=== PATIENT | female | born 1945 | race Caucasian/White ===

== ENCOUNTER 2017-05-05 05:51 | Day surgery (SDC) | payer MEDICARE, OTHER ==
[2017-05-04 12:13] LABS: BASOPHILS # (AUTO) 0.1 X10'3 (0-0.2); BASOPHILS % (AUTO) 0.7 % (0-1); EOSINOPHILS # (AUTO) 0.4 X10'3 (0-0.9); EOSINOPHILS % (AUTO) 4.7 % (0-6); HEMOGLOBIN 13.7 g/dl (12.0-16.0); LYMPHOCYTES # (AUTO) 2.1 X10'3 (1.1-4.8); LYMPHOCYTES % (AUTO) 27.4 % (21-51); MEAN CORPUSCULAR HEMOGLOBIN 31.2 PG (27.0-31.0); MEAN CORPUSCULAR HGB CONC 35.2 % (33.0-36.5); MEAN CORPUSCULAR VOLUME 88.7 FL (78-98); MEAN PLATELET VOLUME 7.4 FL (7.4-10.4); MONOCYTES # (AUTO) 0.7 X10'3 (0-0.9); MONOCYTES % (AUTO) 9.4 % (2-12); NEUTROPHILS # (AUTO) 4.4 X10'3 (1.8-7.7); NEUTROPHILS % (AUTO) 57.8 % (42-75); PLATELET COUNT 268 X10'3 (140-440); RED BLOOD COUNT 4.39 X10'6 (4.20-5.60); RED CELL DISTRIBUTION WIDTH 13.4 % (11.5-14.5); WHITE BLOOD COUNT 7.7 X10'3 (4.5-11.0)
[2017-05-04 12:23] LABS: ALBUMIN 3.6 G/DL (3.4-5.0); ANION GAP 9 (8-16); BLOOD UREA NITROGEN 24 MG/DL (7-18); BUN/CREATININE RATIO 26.4 (6.6-38.0); CALCIUM 9.2 MG/DL (8.5-10.1); CHLORIDE 103 MMOL/L (99-107); CREATININE 0.91 MG/DL (0.40-0.90); GLUCOSE 87 MG/DL (70-104); PARTIAL THROMBOPLASTIN TIME 24 SECONDS (22-32); POTASSIUM 4.6 MMOL/L (3.5-5.1); SODIUM 139 MMOL/L (135-145); TOTAL CARBON DIOXIDE 26.9 MMOL/L (24-32); eGFR 61 ML/MIN
[2017-05-05] VITALS (17 sets, daily range): BP systolic 112–155; BP diastolic 47–70
[~2017-05-05] VITALS: Ht 165.1 cm; Wt 103.6 kg
[~2017-05-05 05:51] MED LIST: ASCO-56 PO; ASPI81TA30 PO; BUDE10.2 INH; CARV-50 PO; CELE-85 PO; CHOL200013 PO; DOCU-28 PO; FISH1CAP15 PO; MAGN400C PO; MULT1TAB74 PO; SIMV20TA5 PO; SPIIN INH; UBID200C18; VALS1TAB4 PO; [UNRECOGNIZED DRUG - CODE] PO
[2017-05-05] MEDS ORDERED: diphenhydrAMINE 25mg capsule PO PRN (06:05)
[2017-05-05] MEDS ORDERED: normal saline 1000ml 1,000 ML IV SCH (06:05)
[2017-05-05] MEDS ORDERED: LORazepam 0.5 MG tablet PO PRN (06:05)
[2017-05-05] MEDS ORDERED: CEPH500C2 PO (06:36)
[2017-05-05] MEDS ORDERED: ALBU18HF2 IH (06:36)
[2017-05-05] MEDS ORDERED: ATOR20TA PO (06:36)
[2017-05-05] MEDS ORDERED: TRAM50TA2 PO (06:36)
[2017-05-05] MEDS ORDERED: OMEG1CAP46 PO (06:36)
[2017-05-05] MEDS ORDERED: ESTR42.53 VG (06:36)
[2017-05-05] MEDS ORDERED: fentaNYL/PF 50MCG/1 ML 2ML syringe ONE (07:40)
[2017-05-05] MEDS ORDERED: midazolam 2 mg/2 ml injection ONE (07:40)
[2017-05-05] MEDS ORDERED: nitroGLYCERIN-Tridil 50MG/D5W 250 ML IV ONE (07:41)
[2017-05-05] MEDS ORDERED: heparin 1,000unit/ml 10ml vial 10 ML ONE (07:41)
[2017-05-05] MEDS ORDERED: LIDOcaine 1%/PF (10mg/ml) 5ml vial ONE (07:41)
[2017-05-05] MEDS ORDERED: iohexol 350 MG/ML 50ML vial IV ONE (07:41)
[2017-05-05] MEDS ORDERED: iohexol 350MG/ML 100ml bottle IV ONE (07:41)
[2017-05-05 08:46] LABS: ISTAT HGB ART 12.6 g/dl (12.0-16.0); ISTAT Hct ART 37 %PCV (35-48); ISTAT O2 SATURATION ARTERIAL 95 % (95-98); ISTAT SOURCE ART
[2017-05-05 08:46] LABS: ISTAT Hct MIX 36 %PCV (35-48); ISTAT O2 SATURATION MIX VENOUS 74 % (60-80); ISTAT SOURCE MIX
[2017-05-05] MEDS ORDERED: HYDROcodone/acetaminophen 5mg/325mg tablet PO PRN (10:50)
[2017-05-05] MEDS ORDERED: HYDROcodone/acetaminophen 10/325mg tab PO PRN (10:55)
== END 2017-05-05 15:43 | disposition home or self-care (01) ==
LOC: SSTAY O 05:51
PROVIDERS: ATTEND Internal Medicine Cardiovascular Disease
DX: I25.10 Atherosclerotic heart disease of native coronary artery without angina pectoris (principal); I10 Essential (primary) hypertension; E78.5 Hyperlipidemia, unspecified; I08.0 Rheumatic disorders of both mitral and aortic valves; J44.9 Chronic obstructive pulmonary disease, unspecified; G89.29 Other chronic pain; M19.90 Unspecified osteoarthritis, unspecified site; E66.9 Obesity, unspecified; I44.7 Left bundle-branch block, unspecified; Z78.0 Asymptomatic menopausal state; Z79.82 Long term (current) use of aspirin; Z79.899 Other long term (current) drug therapy; Z87.891 Personal history of nicotine dependence; Z86.79 Personal history of other diseases of the circulatory system; Z88.2 Allergy status to sulfonamides; Z98.890 Other specified postprocedural states; Z90.89 Acquired absence of other organs; Z90.711 Acquired absence of uterus with remaining cervical stump; Z98.42 Cataract extraction status, left eye; Z98.41 Cataract extraction status, right eye; Z72.89 Other problems related to lifestyle
CPT/HCPCS: 36415; 80048; 82803; 85014; 85025; 85610; 85730; 93005; 93460; 99152; 99153; A6257; C1769; J1644; J2001; J2250; J3010; J3490; J7030; Q0163; Q9967; A4620

== ENCOUNTER 2018-04-06 10:45 | Outpatient (CLI) | payer MEDICARE, OTHER ==
[~2018-04-06 10:45] MED LIST changes: +ALBU18HF2 IH; -ASCO-56 PO; +ATOR20TA PO; +CEPH500C2 PO; -DOCU-28 PO; +ESTR42.53 VG; -FISH1CAP15 PO; -MAGN400C PO; +OMEG1CAP46 PO; -SIMV20TA5 PO; +TRAM50TA2 PO; -[UNRECOGNIZED DRUG - CODE] PO
[2018-04-06 11:46] LABS: BASOPHILS # (AUTO) 0.1 X10'3 (0-0.2); BASOPHILS % (AUTO) 0.9 % (0-1); EOSINOPHILS # (AUTO) 0.4 X10'3 (0-0.9); EOSINOPHILS % (AUTO) 5.7 % (0-6); HEMATOCRIT 37.4 % (35.0-45.0); HEMOGLOBIN 12.8 g/dl (12.0-16.0); LYMPHOCYTES # (AUTO) 1.8 X10'3 (1.1-4.8); LYMPHOCYTES % (AUTO) 26.4 % (21-51); MEAN CORPUSCULAR HEMOGLOBIN 30.7 PG (27.0-31.0); MEAN CORPUSCULAR HGB CONC 34.3 g/dL (33.0-36.5); MEAN CORPUSCULAR VOLUME 89.7 FL (78-98); MEAN PLATELET VOLUME 7.2 FL (7.4-10.4); MONOCYTES # (AUTO) 0.7 X10'3 (0-0.9); MONOCYTES % (AUTO) 10.4 % (2-12); NEUTROPHILS # (AUTO) 3.8 X10'3 (1.8-7.7); NEUTROPHILS % (AUTO) 56.6 % (42-75); PLATELET COUNT 265 X10'3 (140-440); RED BLOOD COUNT 4.18 X10'6 (4.20-5.60); RED CELL DISTRIBUTION WIDTH 14.6 % (11.5-14.5); WHITE BLOOD COUNT 6.8 X10'3 (4.5-11.0)
[2018-04-06 12:06] LABS: ALANINE AMINOTRANSFERASE 32 U/L (12-78); ALBUMIN 3.5 G/DL (3.4-5.0); ALKALINE PHOSPHATASE 70 IU/L (46-116); ANION GAP 8 (8-16); ASPARTATE AMINO TRANSFERASE 22 U/L (10-37); BILIRUBIN,TOTAL 0.5 MG/DL (0.1-1.0); BLOOD UREA NITROGEN 17 MG/DL (7-18); BUN/CREATININE RATIO 18.3 (6.6-38.0); CALCIUM 8.8 MG/DL (8.5-10.1); CHLORIDE 102 MMOL/L (99-107); CREATININE 0.93 MG/DL (0.40-0.90); GLUCOSE 89 MG/DL (70-104); POTASSIUM 4.4 MMOL/L (3.5-5.1); SODIUM 138 MMOL/L (135-145); TOTAL CARBON DIOXIDE 27.9 MMOL/L (24-32); TOTAL PROTEIN 7.1 G/DL (6.4-8.2); eGFR 59 ML/MIN
[2018-04-06 12:18] LABS: PARTIAL THROMBOPLASTIN TIME 26 SECONDS (22-32)
== END 2018-04-06 23:59 | disposition home or self-care (01) ==
LOC: LAB 10:45
PROVIDERS: ATTEND Otolaryngology
DX: D69.1 Qualitative platelet defects (principal); I10 Essential (primary) hypertension; J44.9 Chronic obstructive pulmonary disease, unspecified; Z79.82 Long term (current) use of aspirin; Z90.711 Acquired absence of uterus with remaining cervical stump; Z87.891 Personal history of nicotine dependence
CPT/HCPCS: 36415; 80053; 85025; 85576; 85610; 85730

== ENCOUNTER 2020-09-04 12:40 | Emergency (ER) | payer MEDICARE, OTHER ==
[~2020-09-04] VITALS: Ht 167.6 cm; Wt 77.9 kg
[~2020-09-04 12:40] MED LIST changes: +MULT-620 PO; -MULT1TAB74 PO
[2020-09-04 15:03] LABS: BASOPHILS # (AUTO) 0.1 X10'3 (0-0.2); BASOPHILS % (AUTO) 0.8 % (0-1); EOSINOPHILS # (AUTO) 0.2 X10'3 (0-0.9); EOSINOPHILS % (AUTO) 3.6 % (0-6); HEMOGLOBIN 13.1 g/dl (12.0-16.0); LYMPHOCYTES # (AUTO) 1.7 X10'3 (1.1-4.8); LYMPHOCYTES % (AUTO) 25.4 % (21-51); MEAN CORPUSCULAR HEMOGLOBIN 32.3 PG (27.0-31.0); MEAN CORPUSCULAR HGB CONC 33.7 g/dL (33.0-36.5); MEAN CORPUSCULAR VOLUME 95.7 FL (78-98); MEAN PLATELET VOLUME 6.1 FL (7.4-10.4); MONOCYTES % (AUTO) 14.3 % (2-12); NEUTROPHILS # (AUTO) 3.8 X10'3 (1.8-7.7); NEUTROPHILS % (AUTO) 55.9 % (42-75); PLATELET COUNT 360 X10'3 (140-440); RED BLOOD COUNT 4.07 X10'6 (4.20-5.60); RED CELL DISTRIBUTION WIDTH 13.2 % (11.5-14.5); WHITE BLOOD COUNT 6.8 X10'3 (4.5-11.0)
[2020-09-04 15:16] LABS: ALANINE AMINOTRANSFERASE 25 U/L (12-78); ALBUMIN 3.6 G/DL (3.4-5.0); ALBUMIN/GLOBULIN RATIO 0.9 (1.1-1.5); ALKALINE PHOSPHATASE 59 IU/L (46-116); ANION GAP 6 (8-16); ASPARTATE AMINO TRANSFERASE 17 U/L (10-37); BILIRUBIN,TOTAL 0.3 MG/DL (0.1-1.0); BLOOD UREA NITROGEN 19 MG/DL (7-18); BUN/CREATININE RATIO 25.7 (6.6-38.0); CALCIUM 9.1 MG/DL (8.5-10.1); CHLORIDE 101 MMOL/L (99-107); CREATININE 0.74 MG/DL (0.40-0.90); GLUCOSE 103 MG/DL (70-104); PARTIAL THROMBOPLASTIN TIME 26 SECONDS (22-32); POTASSIUM 4.6 MMOL/L (3.5-5.1); SODIUM 135 MMOL/L (135-145); TOTAL CARBON DIOXIDE 28.2 MMOL/L (24-32); TOTAL PROTEIN 7.4 G/DL (6.4-8.2); eGFR 77 ML/MIN
[2020-09-04] MEDS ORDERED: iohexol 350MG/ML 100ml bottle IV ONE (15:33)
[2020-09-04 16:48] VITALS: BP 150/64
== END 2020-09-04 17:42 | disposition home or self-care (01) ==
LOC: ER 12:42
DX: R04.2 Hemoptysis (principal); R06.02 Shortness of breath; I10 Essential (primary) hypertension; J44.9 Chronic obstructive pulmonary disease, unspecified; G89.29 Other chronic pain; Z90.89 Acquired absence of other organs; Z98.890 Other specified postprocedural states; Z72.89 Other problems related to lifestyle; Z88.2 Allergy status to sulfonamides; Z79.82 Long term (current) use of aspirin; Z79.2 Long term (current) use of antibiotics; Z79.899 Other long term (current) drug therapy
CPT/HCPCS: 36415; 71045; 71275; 80053; 83880; 85025; 85610; 85730; 93005; 99285; Q9967

== ENCOUNTER 2022-08-25 13:12 | Outpatient (CLI) | payer MEDICARE, OTHER ==
[2022-08-25] MEDS ORDERED: BARIUM SULFATE 340 ML SUSP.RECON***PROCEDURE AREA ONLY**DONT ENTER PO ONE (14:00)
== END 2022-08-25 23:59 | disposition home or self-care (01) ==
LOC: RAD 13:12
PROVIDERS: ATTEND Student in an Organized Health Care Education/Training Program
DX: C85.89 Other specified types of non-Hodgkin lymphoma, extranodal and solid organ sites (principal); R13.10 Dysphagia, unspecified; R47.1 Dysarthria and anarthria; R49.0 Dysphonia; Z85.89 Personal history of malignant neoplasm of other organs and systems
CPT/HCPCS: 74230

== ENCOUNTER 2024-08-18 17:40 | Inpatient (IN) | payer MEDICARE, OTHER ==
[~2024-08-18] VITALS: Ht 167.6 cm; Wt 50.0 kg
[~2024-08-18 17:40] MED LIST changes: -CELE-85 PO; -CEPH500C2 PO; -CHOL200013 PO; -ESTR42.53 VG; +LACT-237 PO; +LACT1CAP26 PO; +LOSA-415 PO; -MULT-620 PO; -OMEG1CAP46 PO; +PRED10TA23 PO; +SPIR25TA5 PO; -TRAM50TA2 PO; -UBID200C18; -VALS1TAB4 PO
--- NOTE | 2024-08-18 18:32 | Physician Documentation ---
History of Present Illness Chief Complaint: Chest Wall Pain Stated Complaint: CHEST WALL PAIN Time Seen by MD: 18:14 OK to notify your PCP?: Yes Primary Medical Doctor: Zelda RECORD CHANGER TESTER Source: patient Mode of Arrival: EMS HPI Chief Complaint: Right side pain, right upper quadrant abdominal pain Caveat: None Independent Historians: None History of Present Illness: Patient is a 49-year-old woman brought in by paramedics from home after she developed right lateral abdominal pain and possibly right upper quadrant abdominal pain. Patient states that this came on suddenly, described as sharp and lasted at least a couple of hours maybe 3 hours. She said the pain resolved upon arrival. No chest pain. She denies shortness or breath. No change in her chronic cough. No fever. No nausea vomiting or diarrhea. Patient has had several bowel movements today which she states has been more frequent than usual. Additional history from the medics notes show that she was hypertensive prior to arrival, tachycardic and had a fever over 100. Patient had a pulse ox of 88% on 2 L. paramedics gave Tylenol 1 g IV prior to arrival. Review of systems: All systems were reviewed and are negative except for what is indicated in the history of present illness. Past Medical History: Oral cancer, on home oxygen 2 L, HTN Past Surgical History: Appendectomy Social History: No tobacco use, no alcohol use, no drug use Medications: Reviewed as documented Nursing Notes Allergies: Reviewed as documented in Nursing Notes Medication Reconciliation Allergies: Coded Allergies: Sulfa (Sulfonamide Antibiotics) (Verified Allergy, Unknown, 03/21/14) Scheduled Atorvastatin Calcium* (Lipitor*), 1 TABLET PO HS, (Reported) Carvedilol* (Coreg*), 1 TABLET PO BID, (Reported) Losartan Potassium* (Cozaar*), 1 TAB PO DAILY, (Reported) Spironolactone (Spironolactone), 1 TAB PO DAILY, (Reported) Tiotropium [place] (SPIRIVA inhaler), 1 CAP INH DAILY, (Reported) Miscellaneous Medications Albuterol Sulfate (Ventolin Hfa), 18 GM IH, (Reported) Discontinued Medications Aspirin (Aspirin), 1 TABLET PO DAILY, (Reported) Discontinued Reason: patient no longer taking Budesonide/Formoterol Fumarate (Symbicort 160-4.5 Mcg Inhaler), 2 PUFFS INH Q12H Discontinued Reason: patient no longer taking Lactobacillus Rhamnosus (Culturelle), 1 CAP PO BID Discontinued Reason: patient no longer taking Lactose-Reduced Food (Ensure Enlive), 1 BOTTLE PO TID Discontinued Reason: patient no longer taking Prednisone (Prednisone), 0 PO DAILY Discontinued Reason: patient no longer taking Past Medical History Past Medical History: Hypertension, COPD, Chronic Pain, Chronic Back Pain, Osteoarthritis Past Surgical History: appendectomy, orthopedic surgeries Other Past Family History: Mother of Heart disease Alcohol Use: None Drug Use: none Lives with: Alone Lives In: Home Occupation: retired Review of Systems All Other Systems at this time: Reviewed and Negative ROS Patient denies any other acute symptoms other than above. All other systems are negative Physical Exam Vital Signs: RN Vital Signs have been reviewed: Yes, Temperature: 99.9, Source: Oral, Heart Rate: 97, Respiratory Rate: 17, BP: 149/68, Pulse Oximetry: 92, Weight: 50.000 Oxygen Flow Rate: 6.0 Pulse Oximetry Reflects: adequate oxygenation Physical Exam General Appearance: No distress, frail appearing HEENT: Normal OP, moist oral mucosa, PERRL, EOMI Neck: supple, normal ROM, trachea midline Pulmonary: No respiratory distress, CTA, BS equal Cardiac: RRR, no murmur, rub or gallop, GI: nondistended, soft, nontender, normal bowel sounds, no guarding, no rebound Extremities: normal ROM, no swelling, non-tender Skin: intact, dry, warm, no rashes Neuro: AAOx3, speech is clear, no focal motor weakness Psych: normal affect, good eye contact, no apparent hallucination, normal speech Progress Results/Orders Results/Orders Orders - MULUGETA JIANG MD CMP (08/18/24 18:28) Ed Ultrasound Abd [facility] (08/18/24 18:28) Vital Signs 08/18/24 08/18/24 17:42 17:52 Temp 99.9 Pulse 97 Resp 17 B/P (MAP) 149/68 Pulse Ox 92 92 O2 Delivery Nasal Cannula* O2 Flow Rate 6.0 6 FiO2 44 Medical Decision Making Additional info obtained from: old records Findings Differential diagnosis includes but is not limited to: Aortic dissection, AAA, acute coronary syndrome, biliary colic, choledocholithiasis, ureteral colic, renal colic, colic, intra-abdominal infection, gastric ulcer, duodenal ulcer EKG independent interpretation: Chest x-ray, single view, indication: Right upper quadrant abdominal pain, cough, fever Independent interpretation: Right middle lobe infiltrate consistent with a pneumonia. Normal mediastinum, normal cardiac silhouette Limited abdominal ultrasound, indication: Right upper quadrant abdominal pain Impression: Laboratory data independent interpretation: CBC: Unremarkable, normal WBC 5.6, neutrophil % 90.9% CMP: Unremarkable Lactic acid: 0.9 Urinalysis: Emergency department course/medical decision-making: Patient is a 78-year-old woman who presents with sudden pain in the right mid side. History obtained from the patient is different than what the paramedics obtained from the patient. Patient has had a productive cough and fever at home. Patient is requiring more oxygen. Patient is currently on 5 L of oxygen saturating at 96%. She was on 6 L and that has been titrated down to 5 L. patient is hemodynamically stable. Patient will be given IV fluids, IV Rocephin and IV Zithromax. Patient will require admission for acute respiratory failure requiring more oxygen. Test results and treatment plan and need for admission were discussed with the patient. Consultation/communications: 9:36 p.m.: Case discussed with the hospitalist resident, Dr. Mackay. She will evaluate the patient for admission. Departure Time of Disposition: 21:19 Disposition: 09 ADMITTED INPATIENT Admitted to Inpatient Unit: to hospitalist Admission Level of Care: Med/Surg Impression: Primary Impression: Acute respiratory failure Qualified Codes: J96.01 - Acute respiratory failure with hypoxia Additional Impression: Right middle lobe pneumonia Qualified Codes: J18.9 - Pneumonia, unspecified organism Referrals: NO PRIMARY CARE PROVIDER (PCP) Signature Scribe Signature: No scribe Attestation: No scribe MULUGETA JIANG MD Aug 18, 2024 18:32
--- NOTE | 2024-08-18 18:35 | RADIOLOGY REPORT ---
DI CHEST,TWO VIEWS, HISTORY: PNA DX COMPARISON: DI CHEST,TWO VIEWS on DOS: 07/21/24 DI CHEST,TWO VIEWS on DOS: 07/21/24 TECHNICAL DATA: 2 view of the chest was obtained. FINDINGS: Lines and tubes: None Cardiomediastinal silhouette: normal Pulmonary vasculature: normal Lung expansion: normal Lung airspace: Right basilar consolidation could be pneumonia, appears worse compared to prior. Lung interstitium: normal Pleura: normal Pneumothorax: no Bones: Unremarkable Other: no IMPRESSION: Right basilar consolidation could be pneumonia, appears worse compared to prior.
[2024-08-18 19:13] LABS: BASOPHILS % (AUTO) 0.2 % (0-1); EOSINOPHILS % (AUTO) 0.8 % (0-6); HEMATOCRIT 34.9 % (35.0-45.0); LYMPHOCYTES # (AUTO) 0.3 X10'3 (1.1-4.8); MEAN CORPUSCULAR HEMOGLOBIN 29.8 PG (27.0-31.0); MEAN CORPUSCULAR HGB CONC 34.4 g/dL (33.0-36.5); MEAN CORPUSCULAR VOLUME 86.7 FL (78-98); MEAN PLATELET VOLUME 6.2 FL (7.4-10.4); MONOCYTES # (AUTO) 0.2 X10'3 (0-0.9); MONOCYTES % (AUTO) 3.1 % (2-12); NEUTROPHILS # (AUTO) 5.3 X10'3 (1.8-7.7); NEUTROPHILS % (AUTO) 90.9 % (42-75); PLATELET COUNT 256 X10'3 (140-440); RED BLOOD COUNT 4.03 X10'6 (4.20-5.60); RED CELL DISTRIBUTION WIDTH 14.2 % (11.5-14.5); WHITE BLOOD COUNT 5.8 X10'3 (4.5-11.0)
[2024-08-18 19:31] LABS: ALANINE AMINOTRANSFERASE 28 U/L (12-78); ALBUMIN 2.8 G/DL (3.4-5.0); ALKALINE PHOSPHATASE 73 IU/L (46-116); ANION GAP 6 (8-16); ASPARTATE AMINO TRANSFERASE 14 U/L (10-37); BILIRUBIN,TOTAL 0.7 MG/DL (0.1-1.0); BLOOD UREA NITROGEN 9 MG/DL (7-18); BUN/CREATININE RATIO 12.9 (10.0-20.0); CALCIUM 8.5 MG/DL (8.5-10.1); CHLORIDE 104 MMOL/L (99-107); GLUCOSE 75 MG/DL (70-104); SODIUM 138 MMOL/L (135-145); TOTAL CARBON DIOXIDE 28.5 MMOL/L (24-32); TOTAL PROTEIN 5.7 G/DL (6.4-8.2); eCRCL 51 ML/MIN; eGFR 81 ML/MIN
[2024-08-18 19:38] LABS: PRO BRAIN NATRIURETIC PEPTIDE 423 PG/ML (0-450)
[2024-08-18] MEDS ORDERED: potassium Cl 40MEQ/1/2NS 520ml 520 ML IV PRN (21:40)
[2024-08-18] MEDS ORDERED: magnesium sulf-water 4G/100mL 100 ML IV PRN (21:40)
[2024-08-18] MEDS ORDERED: magnesium hydroxide 30ml (MOM) UD suspension PO PRN (21:40)
[2024-08-18] MEDS ORDERED: potassium Cl 20 mEq SR tablet PO PRN ×2 (21:40)
[2024-08-18] MEDS ORDERED: magnesium sulf-water 2g/50mL 50 ML IV PRN (21:40)
[2024-08-18] MEDS ORDERED: ondansetron/PF 4mg/2ml inj IV PRN (21:40)
[2024-08-18] MEDS ORDERED: magnesium Cl slow-release 64mg tablet PO PRN (21:40)
[2024-08-18] MEDS ORDERED: acetaminophen 325mg tablet PO PRN (21:40)
[2024-08-18] MEDS ORDERED: albuterol 2.5 MG/3 ML nebule NEB PRN (21:45)
--- NOTE | 2024-08-18 21:56 | RADIOLOGY REPORT ---
Procedure: US ULTRASOUND OF ABDOMEN [facility] Study Date and Requested Time: 08/18/2024 08:44 PM History: RUQ PAIN/FLANK PAIN Comparison: None Technique: Multiple high resolution chavez-scale images obtained of the right upper quadrant of the abd omen with color Doppler for evaluation of blood flow and vascularity as indicated. Findings: Liver normal in size, measuring 13.66 cm in length, with homogenous echotexture and normal contours. No evidence of focal hepatic lesions, intrahepatic or extrahepatic ductal dilatation. Common bile andreas t measures 0.4 cm in diameter. Gallbladder is unremarkable with no evidence of abnormal wall thickening, gallstones, biliary sludge, or pericholecystic fluid. Negative sonographic Luna's sign. Pancreas is partially obscured by bowel gas Right kidney measures 9.1 cm in length, with normal contours, echotexture, and cortical thickness. No evidence of hydronephrosis, calculi, cystic or solid renal lesions. Partially visualized inferior vena cava is unremarkable. Incidental finding of small right-sided pleural effusion. Impression: Pancreas is partially obscured by bowel gas. Otherwise, unremarkable sonographic study of the right upper abdominal quadrant. Incidental finding of small right-sided pleural effusion.
[2024-08-18 22:13] LABS: HEMOGLOBIN A1C 5.4 % (4.5-6.2)
--- NOTE | 2024-08-18 22:14 | ELECTROCARDIOGRAPH REPORT ---
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
[2024-08-18] MEDS: CefTRIAXone/D5W-Rocephin 1gm 50 ML IV ONE (22:21)
--- NOTE | 2024-08-18 22:25 | HISTORY AND PHYSICAL-Residence ---
History & Physical Providers to CC Resident Creating Document: CLINT MACKAY, RES ~ History of Present Illness Primary Medical Doctor: Zelda POWELL Reason for Admit\Complaint: Shortness of breaths History of Present Illness 78 years old female with history of extensive medical history including nasopharyngeal squamous cell carcinoma diagnosed in 2022 ,hypertension, recent pneumonia, COPD on 2-3 L oxygen at home, CHF with mild reduced ejection fraction, severe protein calorie malnutrition brought to the ED due to increasing oxygen demand. Patient is very hard in hearing in is very poor historian, information gathered from medical staff and previous chart. Patient admitted in our hospital with community-acquired pneumonia respiratory distress about three weeks ago. 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 His medical staff report patient lives alone and Allergies: Coded Allergies: Sulfa (Sulfonamide Antibiotics) (Verified Allergy, Unknown, 03/21/14) Home Medications Home Medications Active Reported Spironolactone 25 Mg Tablet 1 Tab PO DAILY Cozaar* (Losartan Potassium) 25 Mg Tablet 1 Tab PO DAILY Lipitor* (Atorvastatin Calcium) 20 Mg Tablet 1 Tablet PO HS Ventolin Hfa (Albuterol Sulfate) 18 Gm Hfa.aer.ad 18 Gm IH SPIRIVA inhaler (Tiotropium [place]) 18 Mcg/1 Cap Aero 1 Cap INH DAILY Coreg* (Carvedilol) 12.5 Mg Tablet 1 Tablet PO BID Past Medical History Past Medical History Nasopharyngeal squamous cell carcinoma evaluated by Dr. Dutta, diagnosed in 2022 and underwent subsequent chemoradiation COPD Multiple pneumonia Hypertension Dyslipidemia Coronary artery disease Aortic and mitral regurgitation Heart failure with mild reduced ejection fraction Past Surgical History Surgical History Comment Left knee replacement Right partial knee replacement Hysterectomy Cataracts Appendectomy Past Social History Smoking: Quit greater than 1 year (The patient smoked from age [age].) Alcohol Use: None Drug Use: None Lives with: Alone Lives In: Home Occupation: retired ROS All Other Systems: Reviewed and Negative ROS The history of present illness included a review of system, which yielded relevant positives and negatives Exam Vitals: Vital Signs Date Time Temp Pulse Resp B/P (MAP) Pulse Ox O2 Delivery O2 Flow Rate FiO2 08/18/24 19:08 26 08/18/24 19:08 86 97 6.0 08/18/24 17:52 Nasal Cannula* 44 08/18/24 17:42 99.9 General: General: Awake and Alert, cachectic old lady HEENT: Conjunctiva pink, Sclera clear, Mucus Membranes moist, hard of hearing Neck: Supple without masses and tenderness. Resp: Diminished breath sounds, crackle on the right side Heart: Regular Rate and rhythm, normal S1 and S2 Abdomen: Soft and non tender Extremities: No cyanosis,clubbing or edema. Skin: Warm and Dry. Neurological: Speech is dysarthric due to his cancer/ radiation , alert, and oriented x 4, severely hard of hearing, nonfocal neurological deficits Diagnostic Data Last Recorded Lab Results: 08/18/24189908/18/241899 Advance Care Planning Advanced Care plannin - 30 Minutes Additional Plan 78 years old female with history of extensive medical history including nasopharyngeal squamous cell carcinoma diagnosed in 2022 ,hypertension, recent pneumonia, COPD on 2-3 L oxygen at home, CHF with preserved ejection fraction, severe protein calorie malnutrition brought to the ED due to increasing oxygen demand. Acute respiratory hypoxic failure Community-acquired Pneumonia versus aspiration pneumonia COPD exacerbation Negative COVID, flu and RSV is pending Chest x-ray showed: Right basilar consolidation could be pneumonia, appears worse compared to prior Received ceftriaxone and azithromycin in the ED Due to recent antibiotic use in the hospital with similar symptoms, we will continue with Zosyn Solu-Medrol 60 mg daily and DuoNeb started, aspiration precaution Blood glucose 75, IV fluid D5 LR 30 mL/hour started please reassess patient tomorrow and adjust accordingly CHF with mildly reduced ejection fraction not in exacerbation Hypertension Coronary artery disease 07/29, Echo: Normal LV size and wall thickness. Overall systolic function is mildly reduced. Multisegmental wall motion abnormalities. RV is mildly dilated with normal systolic function. RVSP is estimated at 39 mmHg. Trileaflet AV appears mildly sclerotic without stenosis. Mild insufficiency. Mild MV annular calcification without stenosis. Mild regurgitation. TV appears structurally normal with mild regurgitation. Normal PV without stenosis, physiologic insufficiency. Normal pericardium. No effusion. Continue home medication carvedilol 12.5, b.i.d., losartan 25 daily, spironolactone 25 daily, atorvastatin 20 daily HOLD for SBP < 100 low-salt diet. Titrate diuretics as required. Patient has dementia and severe hearing loss, unable to communicate clearly, POA is her daughter which she asked the nurse earlier to do not call her at night because she wants to sleep and she we will come back tomorrow in morning. I put full code for code status as previous admission three weeks ago. Please reach out to the daughter for confirmation in a.m. Code Status: full code DVT prophylaxis: heparine Analgesia/sedation: None Line/tube: peripheral GI prophylaxis: protonix Nutrition: Clear liquid after passed swallow eval PT: yes Prognosis: Guarded Disposition: Continue monitoring patient in PCU floor with telemetry Clint Mackay MD Internal Medicine Resident I saw and discussed this pt with DR Mackay She is quite frail and cachectic agree with present assessment and plan as documented Date of Service: Aug 18, 2024 Billing Provider: MARK MOORE MD, ELAHE, RES Aug 18, 2024 22:25 MARK MOORE MD Aug 19, 2024 08:06
[2024-08-18] MEDS: azithromycin/NS 500mg/250ml 250 ML IV ONE (23:11)
[2024-08-18 23:27] VITALS: PULSE 83; RESP 16; O2SAT 97
[2024-08-18] MEDS: ipratropium/albuterol 3ml nebule NEB SCH (23:27)
[2024-08-18 23:33] VITALS: PULSE 78; RESP 16
[2024-08-19] VITALS (18 sets, daily range): BP systolic 101–127; BP diastolic 46–80; PULSE 52–79; RESP 13–20; TEMP 97.1–97.8; O2SAT 92–100
[2024-08-19] MEDS: methylPREDNISolone sod succ 125mg/2ml vial IV SCH (01:28)
[2024-08-19] MEDS: normal saline 1000ml 1,000 ML IV SCH (02:02)
[2024-08-19] MEDS ORDERED: sodium chloride inj. 154 MEQ in Dextrose 10%-water IV solution 961.5 ML IV SCH (04:50)
[2024-08-19] MEDS: VANCOMYCIN/H2O 1.25G/250mL PB 250 ML IV ONE (05:34)
[2024-08-19] MEDS: VANCOmycin 1250MG/NS 250ml Bag 250 ML IV ONE (05:53)
[2024-08-19] MEDS: dextrose 5%-lactated ringers 1,000 ML IV SCH (05:54)
[2024-08-19 06:45] LABS: BASOPHILS % (AUTO) 0.1 % (0-1); EOSINOPHILS % (AUTO) 0 % (0-6); HEMATOCRIT 35.3 % (35.0-45.0); HEMOGLOBIN 11.9 g/dl (12.0-16.0); LYMPHOCYTES # (AUTO) 0.3 X10'3 (1.1-4.8); LYMPHOCYTES % (AUTO) 3.1 % (21-51); MEAN CORPUSCULAR HEMOGLOBIN 29.6 PG (27.0-31.0); MEAN CORPUSCULAR HGB CONC 33.7 g/dL (33.0-36.5); MEAN CORPUSCULAR VOLUME 87.9 FL (78-98); MEAN PLATELET VOLUME 6.4 FL (7.4-10.4); MONOCYTES # (AUTO) 0.2 X10'3 (0-0.9); NEUTROPHILS # (AUTO) 8.5 X10'3 (1.8-7.7); NEUTROPHILS % (AUTO) 94.8 % (42-75); PLATELET COUNT 256 X10'3 (140-440); RED BLOOD COUNT 4.02 X10'6 (4.20-5.60); RED CELL DISTRIBUTION WIDTH 14.6 % (11.5-14.5)
[2024-08-19 07:56] LABS: ANION GAP 6 (8-16); BLOOD UREA NITROGEN 10 MG/DL (7-18); BUN/CREATININE RATIO 14.9 (10.0-20.0); CHLORIDE 103 MMOL/L (99-107); CREATININE 0.67 MG/DL (0.40-0.90); GLUCOSE 113 MG/DL (70-104); POTASSIUM 4.2 MMOL/L (3.5-5.1); SODIUM 136 MMOL/L (135-145); TOTAL CARBON DIOXIDE 26.8 MMOL/L (24-32)
[2024-08-19 07:57] LABS: ALANINE AMINOTRANSFERASE 21 U/L (12-78); ALBUMIN 2.7 G/DL (3.4-5.0); ALBUMIN/GLOBULIN RATIO 0.9 (1.1-1.5); ALKALINE PHOSPHATASE 68 IU/L (46-116); ASPARTATE AMINO TRANSFERASE 20 U/L (10-37); BILIRUBIN,TOTAL 0.8 MG/DL (0.1-1.0); CALCIUM 8.5 MG/DL (8.5-10.1); CHOL/HDL RATIO 1.9 (0.00-4.99); CHOLESTEROL 115 MG/DL (0-200); HDL CHOLESTEROL 60 MG/DL (35-60); LDL CHOLESTEROL 43 MG/DL (50-100); MAGNESIUM 1.6 MG/DL (1.5-2.4); TOTAL PROTEIN 5.7 G/DL (6.4-8.2); TRIGLYCERIDES 15 MG/DL (20-135); eCRCL 54 ML/MIN; eGFR 85 ML/MIN
[2024-08-19] MEDS: K and/or MAG REPLACEMENT MC SCH (08:00)
[2024-08-19] MEDS: carVEDilol 12.5mg tablet PO SCH (08:47)
[2024-08-19] MEDS: docusate sod 100mg capsule PO SCH (08:47)
[2024-08-19] MEDS: losartan 25mg tablet PO SCH (08:47)
[2024-08-19] MEDS: spironolactone 25 MG tablet PO SCH (08:47)
[2024-08-19] MEDS: piperacillin/tazo 3.375gm/50ml 50 ML IV SCH (09:26)
[2024-08-19] MEDS: pantoprazole 40 MG vial IV SCH (09:26)
--- NOTE | 2024-08-19 20:59 | PROGRESS NOTE ---
Daily Progress Note Providers to CC ~ Antibiotic Timeout Antibiotic Ordered?: Yes Subjective The patient is breathing is improved from that of presentation ED and the patient was requesting if she can get respiratory therapy at home when I discussed this with the further the patient was wanting home nebulizer for which on discharge will talk to case management in order medications for home nebulizer. Also the patient is awaiting physical therapy evaluation Objective Vital Signs Date Time Temp Pulse Resp B/P (MAP) Pulse Ox O2 Delivery O2 Flow Rate FiO2 08/19/24 18:30 76 08/19/24 17:59 94 Nasal Cannula* 2 28 08/19/24 16:07 20 08/19/24 15:00 97.1 105/47 (66) Result Diagram: 08/19/24 0612 08/19/24 0612 Gen. No acute distress alert and oriented 4- difficult to understand speech Lungs clear to ascultation bilaterally, no wheezes rales or rhonchi appreciated Heart normal sinus rhythm no murmurs rubs or clicks noted Abdomen soft nontender bowel sounds are normoactive Lower extremities no clubbing cyanosis, nor edema appreciated bilaterally Problem\Assessment\Plan Problems/Diagnosis: (1) Right middle lobe pneumonia Acute respiratory hypoxic failure Community-acquired Pneumonia versus aspiration pneumonia COPD exacerbation Negative COVID, flu and RSV is pending Chest x-ray showed: Right basilar consolidation could be pneumonia, appears worse compared to prior Received ceftriaxone and azithromycin in the ED Due to recent antibiotic use in the hospital with similar symptoms, we will continue with Zosyn Solu-Medrol 60 mg daily and DuoNeb started, aspiration precaution Blood glucose 75, IV fluid D5 LR 30 mL/hour started please reassess patient tomorrow and adjust accordingly 08/19 breathing is improved the patient requests a home nebulizer for discharge when going home for which we will arrange with CHF with mildly reduced ejection fraction not in exacerbation Hypertension Coronary artery disease 07/29, Echo: Normal LV size and wall thickness. Overall systolic function is mildly reduced. Multisegmental wall motion abnormalities. RV is mildly dilated with normal systolic function. RVSP is estimated at 39 mmHg. Trileaflet AV appears mildly sclerotic without stenosis. Mild insufficiency. Mild MV annular calcification without stenosis. Mild regurgitation. TV appears structurally normal with mild regurgitation. Normal PV without stenosis, physiologic insufficiency. Normal pericardium. No effusion. Continue home medication carvedilol 12.5, b.i.d., losartan 25 daily, spironolactone 25 daily, atorvastatin 20 daily HOLD for SBP < 100 low-salt diet. Titrate diuretics as required. Patient has dementia and severe hearing loss, unable to communicate clearly, JS is her daughter which she asked the nurse earlier to do not call her at night because she wants to sleep and she we will come back tomorrow in morning. I put full code for code status as previous admission three weeks ago. Code Status: full code DVT prophylaxis: heparine Analgesia/sedation: None Line/tube: peripheral GI prophylaxis: protonix Date of Service: Aug 19, 2024 Billing Provider: SUKHJINDER ELON DO Common Visit Codes: [id number] INP/OBS CARE(HIGH) Problem Qualifiers (1) Right middle lobe pneumonia: Qualified Codes: J18.9 - Pneumonia, unspecified organism SUKHJINDER LEON DO Aug 19, 2024 20:59
[2024-08-19] MEDS: atorvastatin 20mg tablet PO SCH (21:14)
[2024-08-20] VITALS (10 sets, daily range): BP systolic 90–134; BP diastolic 44–56; PULSE 54–78; RESP 14–18; TEMP 97.7–98.7; O2SAT 92–96
[2024-08-20] MEDS: vancomycin/NS 1 GM ADD-VANTAGE 250 ML IV SCH (06:50)
[2024-08-20 06:53] LABS: BASOPHILS % (AUTO) 0.1 % (0-1); EOSINOPHILS % (AUTO) 0 % (0-6); HEMATOCRIT 31.5 % (35.0-45.0); HEMOGLOBIN 10.7 g/dl (12.0-16.0); LYMPHOCYTES # (AUTO) 0.5 X10'3 (1.1-4.8); LYMPHOCYTES % (AUTO) 4.2 % (21-51); MEAN CORPUSCULAR HEMOGLOBIN 29.5 PG (27.0-31.0); MEAN CORPUSCULAR VOLUME 86.7 FL (78-98); MEAN PLATELET VOLUME 6.9 FL (7.4-10.4); MONOCYTES # (AUTO) 0.6 X10'3 (0-0.9); MONOCYTES % (AUTO) 5.5 % (2-12); NEUTROPHILS # (AUTO) 10.1 X10'3 (1.8-7.7); NEUTROPHILS % (AUTO) 90.2 % (42-75); PLATELET COUNT 251 X10'3 (140-440); RED BLOOD COUNT 3.64 X10'6 (4.20-5.60); RED CELL DISTRIBUTION WIDTH 14.4 % (11.5-14.5); WHITE BLOOD COUNT 11.2 X10'3 (4.5-11.0)
[2024-08-20 07:18] LABS: ALANINE AMINOTRANSFERASE 22 U/L (12-78); ALBUMIN 2.4 G/DL (3.4-5.0); ALBUMIN/GLOBULIN RATIO 0.8 (1.1-1.5); ALKALINE PHOSPHATASE 61 IU/L (46-116); ANION GAP 7 (8-16); ASPARTATE AMINO TRANSFERASE 13 U/L (10-37); BILIRUBIN,TOTAL 0.7 MG/DL (0.1-1.0); BLOOD UREA NITROGEN 9 MG/DL (7-18); BUN/CREATININE RATIO 12.3 (10.0-20.0); CALCIUM 8.7 MG/DL (8.5-10.1); CHLORIDE 101 MMOL/L (99-107); CREATININE 0.73 MG/DL (0.40-0.90); GLUCOSE 118 MG/DL (70-104); MAGNESIUM 1.6 MG/DL (1.5-2.4); SODIUM 135 MMOL/L (135-145); TOTAL CARBON DIOXIDE 26.6 MMOL/L (24-32); TOTAL PROTEIN 5.6 G/DL (6.4-8.2); eCRCL 49 ML/MIN; eGFR 77 ML/MIN
[2024-08-20] MEDS ORDERED: PRED20TA PO (11:59)
[2024-08-20] MEDS ORDERED: AMOX-580 PO (11:59)
[2024-08-20] MEDS ORDERED: ALBU2.5V7 NEB (12:01)
[2024-08-20] MEDS ORDERED: LACT1CAP76 PO (12:01)
[2024-08-20] MEDS ORDERED: lactose-reduced food (Ensure Enlive) - 237ml bottle PO SCH (18:00)
--- NOTE | 2024-08-20 20:19 | DISCHARGE SUMMARY ---
Discharge Summary Providers to CC ~ Discharge Summary Admission Diagnosis: ACUTE RESPIRATORY FAILURE, PNEUMONIA Hospital Course DATE OF ADMISSION: 08/18/2024 DATE OF DISCHARGE: 08/20/2024 Discharge Diagnosis\\Comment: Pneumonia likely secondary to aspiration pneumonia, acute exacerbation of c hronic COPD, chronic HFrEF mild not in acute exacerbation Operations\\Procedures: None Consultants: None Complications: None Condition on DC: Stable New Medications: Amox Tr/Potassium Clavulanate 875/125 MG (Augmentin 875/125 MG) 875 Mg-125 Mg Tablet 1 TAB PO BID, #10 TAB Lactobacillus Casei/Folic Acid (Restora Rx Capsule) 60 Mg (200 Billion Cell)- 1.25 Mg Capsule 1 CAP PO DAILY for 30 Days, #30 CAP 0 Refills Prednisone* (Prednisone*) 20 Mg Tablet 1 TAB PO DAILY, #5 TAB Albuterol Sulfate (Albuterol Sulfate) 2.5 Mg/3 Ml Vial.neb 2.5 MG NEB Q6H PRN for SOB or wheezing, #1 BOXS Continued Medications: Albuterol Sulfate (Ventolin Hfa) 18 Gm Hfa.aer.ad 18 GM IH, INHALER Atorvastatin Calcium* (Lipitor*) 20 Mg Tablet 1 TABLET PO HS, TABLET Carvedilol* (Coreg*) 12.5 Mg Tablet 1 TABLET PO BID Losartan Potassium* (Cozaar*) 25 Mg Tablet 1 TAB PO DAILY, TAB Spironolactone (Spironolactone) 25 Mg Tablet 1 TAB PO DAILY, TAB 0 Refills Tiotropium [place] (SPIRIVA inhaler) 18 Mcg/1 Cap Aero 1 CAP INH DAILY Discharge Summary: The patient was admitted by resident physician CLINT Ladd under the supervision of MARK Mcdonald MD with the following HPI:"78 years old female with history of extensive medical history including nasopharyngeal squamous cell carcinoma diagnosed in 2022 ,hypertension, recent pneumonia, COPD on 2-3 L oxygen at home, CHF with mild reduced ejection fraction, severe protein calorie malnutrition brought to the ED due to increasing oxygen demand. Patient is very hard in hearing in is very poor historian, information gathered from medical staff and previous chart. Patient admitted in our hospital with community-acquired pneumonia respiratory distress about three weeks ago. 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 His medical staff report patient lives alone" the patient's breathing was improved when I saw her in the morning of the and by the morning of the patient is felt ready to be discharged she requested a home nebulizer for which I ordered for her and ordered albuterol neb treatments the patient also was discharged with a prednisone 20 mg daily for five days she had received. IV Solu-Medrol during hospitalization the patient likely had an aspiration pneumonia and was treated with IV Zosyn and discharged with Augmentin and a prescription for restora. Gen. No acute distress alert and oriented 4- difficult to understand speech Lungs clear to ascultation bilaterally, no wheezes rales or rhonchi appreciated Heart normal sinus rhythm no murmurs rubs or clicks noted Abdomen soft nontender bowel sounds are normoactive Lower extremities no clubbing cyanosis, nor edema appreciated bilaterally The patient felt ready to be discharged and was medically cleared to be discharged on 08/20/2024 The patient was seen and evaluated on day of discharge. Time spent on discharge 35 minutes *Problems/Diagnosis: (1) Right middle lobe pneumonia Status: Acute Total Time Spent on D/C: > 30 Minutes Date of Service: Aug 20, 2024 Billing Provider: SUKHJINDER LEON DO Common Visit Codes: 00085-NKQ/OBS DISCH DAY >30min Problem Qualifiers (1) Right middle lobe pneumonia: Qualified Codes: J18.9 - Pneumonia, unspecified organism SUKHJINDER LEON DO Aug 20, 2024 20:18
[2024-08-22] MEDS ORDERED: VANCOMYCIN LEVEL IV ONE (05:30)
== END 2024-08-20 14:20 | disposition home or self-care (01) | DRG 177 ==
LOC: ER 17:41 → PCU 3S 21:24 → UNDOADMIN 21:24 → PCU 3S 21:41
PROVIDERS: ADMIT Internal Medicine; ATTEND Family Medicine
DX: J69.0 Pneumonitis due to inhalation of food and vomit (principal); J96.01 Acute respiratory failure with hypoxia; J44.0 Chronic obstructive pulmonary disease with (acute) lower respiratory infection; J44.1 Chronic obstructive pulmonary disease with (acute) exacerbation; I50.22 Chronic systolic (congestive) heart failure; Z20.822 Contact with and (suspected) exposure to COVID-19; I11.0 Hypertensive heart disease with heart failure; I25.10 Atherosclerotic heart disease of native coronary artery without angina pectoris; E78.5 Hyperlipidemia, unspecified; F03.90 Unspecified dementia, unspecified severity, without behavioral disturbance, psychotic disturbance, mood disturbance, and anxiety; R13.10 Dysphagia, unspecified; Z90.49 Acquired absence of other specified parts of digestive tract; Z82.49 Family history of ischemic heart disease and other diseases of the circulatory system; Z87.01 Personal history of pneumonia (recurrent); G89.29 Other chronic pain; M54.9 Dorsalgia, unspecified; Z96.653 Presence of artificial knee joint, bilateral
CPT/HCPCS: 36415; 71046; 76700; 80053; 80061; 82948; 83036; 83605; 83735; 83880; 85025; 87040; 87081; 87811; 92508; 92616; 93005; 94640; 94760; 97110; 97116; 97161; 99285; G0378; J0456; J0696; J2470; J2543; J2919; J3370; J7030; J7040; J7121